=== PATIENT | female | born 1990 | race Caucasian/White ===

== ENCOUNTER 2025-03-06 17:23 | Emergency (ER) | payer BC, SELFPAY ==
[2025-03-06] VITALS (11 sets, daily range): BP systolic 114–132; BP diastolic 57–79; PULSE 77–92; RESP 16–20; TEMP 36.4; O2SAT 96–100; BMI 34.7
[2025-03-06 18:10] LABS: Ictotest Urine Negative (Negative)
--- NOTE | 2025-03-06 18:10 | ED_ITS ---
HPI - Back Pain/Injury General Chief Complaint: Back Pain/Injury Stated Complaint: pain from mid neck to back Time Seen by Provider: 03/06/25 17:45 Source: patient History of Present Illness HPI Narrative: 34-year-old female with obstetrical history, last menstrual period 1125, had home presentation tests positive 02/28/2025 x2 home tests, going nausea and vomiting, [place] 03/03/2025 had vaginal spotting, on 03/04/2025 had passing of clot, while they were returning from vacation in [place] coming back home. Chronic low back pain. Mid upper pain between shoulder blades earlier this morning. [place] like she might pass out. However she has had periods of low back pain in the past, sometimes associated with a sensation that she might pass out. No recent cough fevers or chills. Patient also expressed concerns about ongoing left ankle area numbness 4 months' duration. No incontinence of urine or stool. Intermittent symptoms. Has been followed by a neurologist for migraine headaches, unclear if neurologists has been involved with this workup prior. Related Data Allergies Allergy/AdvReac Type Severity Reaction Status Date / Time latex Allergy Severe Rash Verified 03/06/25 18:07 Patient History Social History Smoking Status: Current every day smoker Smoking Status: Current every day smoker tobacco type: vaping Exam Narrative Exam Narrative: GENERAL: Well-developed patient, in mild distress. HEAD: Atraumatic. Normocephalic. EYES: Pupils equal round and reactive. Extraocular motions intact. No scleral icterus. No injection or drainage. ENT: No obvious craniofacial trauma or swelling.. NECK: Trachea midline. Non tender CARDIOVASCULAR: Regular rate and rhythm without murmurs, gallops, or rubs. RESPIRATORY: Clear to auscultation. Breath sounds equal bilaterally. No wheezes, rales, or rhonchi. GASTROINTESTINAL: Obese, Abdomen soft, non-tender, nondistended. EXTREMITIES: No edema or joint tenderness. BACK: Nontender without deformity or crepitance. No flank tenderness. NEURO: AOx3. Motor functions grossly nonfocal. Sensation intact to light touch including to left ankle/foot area that reportedly has had intermittent tingling for months duration. SKIN: No rash or erythema of visible areas Initial Vital Signs Initial Vital Signs: Vital Signs Temperature 97.6 F 03/06/25 17:32 Pulse Rate 90 03/06/25 17:32 Respiratory Rate 18 03/06/25 17:32 Blood Pressure 132/72 03/06/25 17:32 Pulse Oximetry 100 03/06/25 17:32 Oxygen Delivery Method Room Air 03/06/25 17:32 Course Orders Ordered: ED Orders 03/06/25 17:45 Ictotest Urine Stat Urine Microscopic Stat 03/06/25 18:11 US pelvic complete Stat 03/06/25 18:28 ABO RH Type Stat CBC Auto Diff [Complete Blood Count AUTO DIFF] Stat CMP [Comprehensive Metabolic Panel] Stat HCG Quantitative /Beta subunit Stat Discontinued Medications Lactated Ringer's (Lactated Ringers) 1,000 mls @ 1,000 mls/hr IV BOLUS ONE Stop: 03/06/25 19:11 Last Infusion: 03/06/25 21:03 Dose: Infused Documented By: Admin: 03/06/25 18:34 Dose: 1,000 mls/hr Documented By: ANALI Vital Signs Vital signs: Vital Signs - 8 hr 03/06/25 19:00 03/06/25 19:00 03/06/25 19:30 Pulse Rate Respiratory Rate Blood Pressure 121/70 117/78 Pulse Oximetry 96 03/06/25 19:30 03/06/25 20:00 03/06/25 20:00 Pulse Rate 84 88 Respiratory Rate 20 Blood Pressure 114/79 Pulse Oximetry 97 98 03/06/25 20:26 03/06/25 20:44 03/06/25 20:44 Pulse Rate 82 Respiratory Rate 16 Blood Pressure 116/65 Pulse Oximetry 98 03/06/25 21:00 03/06/25 21:01 03/06/25 21:01 Pulse Rate 77 77 Respiratory Rate Blood Pressure 118/57 L Pulse Oximetry 97 97 03/06/25 21:04 Pulse Rate Respiratory Rate 16 Blood Pressure Pulse Oximetry MDM - Back Pain/Injury Lab Data Attestation: I reviewed the patient's lab results. Lab results narrative: White blood cell count 8200, hemoglobin 13.8, platelets adequate. Glucose 107. Normal renal function, serum CO2, electrolytes. Liver functions normal. Urine dip negative. Urine test positive. Serum quantitative hCG low but measurable 25. O-positive blood type/Rh noted. 03/06/25 18:28 03/06/25 18:28 Labs: Lab Results 03/06/25 03/06/25 Range/Units 17:45 18:28 WBC 8.2 (4.5-11.0) X10^3/uL RBC 4.76 (4.0-5.2) X10^6/uL Hgb 13.8 (12.0-16.0) g/dL Hct 40.7 (36-46) % MCV 85.6 (80-100) fL MCH 29.0 (26-34) PG MCHC 33.9 (30-36) % RDW 13.6 (11.6-14.8) % Plt Count 242 (150-400) X10^3/uL Neut % (Auto) 73.0 (50-75) % Lymph % (Auto) 18.0 L (25-40) % [place]elope % (Auto) 6.3 (3-14) % Eos % (Auto) 2.0 (2-4) % Baso % (Auto) 0.7 (0-2) % Neut # (Auto) 6000 (8272-4072) /uL Lymph # (Auto) 1500 (1628-1374) /uL [place]elope # (Auto) 500 (0-900) /uL Eos # (Auto) 200 (0-450) /uL Baso # (Auto) 100 (0-100) /uL Sodium 138 (137-145) mmol/L Potassium 3.4 (3.4-5.1) mmol/L Chloride 104 (98-107) mmol/L Carbon Dioxide 23 (22-32) mmol/L BUN 9 (7-17) mg/dL Creatinine 0.93 (0.52-1.04) mg/dL Estimated GFR > 60 (>60) mL/min BUN/Creatinine Ratio 9.7 (6-22) Glucose 107 H (70-99) mg/dL Calcium 9.2 (8.4-10.2) mg/dL Total Bilirubin 0.3 (0.2-1.3) mg/dL AST 29 (14-36) IU/L ALT 23 (<35) IU/L Alkaline Phosphatase 69 (38-126) U/L Total Protein 8.1 (6.3-8.2) g/dL Albumin 4.8 (3.5-5.0) g/dL Globulin 3.3 (1.7-4.1) g/dL Albumin/Globulin Ratio 1.5 (1.0-2.8) HCG, Quant 24.95 mIU/mL Ur Bilirubin Confirm Negative (Negative) Urine RBC None seen (0-5/HPF) Urine WBC 1-5/hpf (0-5/HPF) Ur Squamous Epith Cells 1-5 /hpf (0-5/HPF) Urine Bacteria Few (2-10) H (None) Ur Culture Indicated? Cult not indicated Vol Urine Centrifuged 10ml (spun) Blood Type O Positive Point of Care Testing Test Results Positive Urine Dip Bedside Urine Glucose Negative Bedside Urine Bilirubin + 1 Bedside Urine Ketone + 15 Urine Specific [place] 1.015 Bedside Urine Occult Blood ++ Bedside Urine pH 6 Bedside Urine Protein +/- 15 Bedside Urine Urobilinogen - Negative Bedside Urine Nitrite - Negative Bedside Urine Leukocytes +/- 15 Esterase Imaging Data Ultrasound pelvis: Radiologist's Impression: [address] [address] Ultrasound Report Signed Patient: Raya Knutson MR#: [id number] : 1990 Acct:[id number] Age/Sex: 34 / F Date of Service: 03/06/25 Loc: ED Accession Number: [id number] Procedure: US pelvic complete Ordering Provider: Gunnar Mas MD PROCEDURE: US PELVIC COMPLETE INDICATIONS: BLEEDING; POSITIVE HCG TECHNIQUE: Real-time scanning was performed of the pelvic organs, with image documentation. Additional endovaginal scanning was necessary due to incomplete visualization of the adnexal and endometrial structures by transabdominal scanning. COMPARISON: None. FINDINGS: Uterus: Uterus is anteverted and normal in size at 7.6 x 3.0 x 5.1 cm. The myometrium is homogeneous. The endometrium measures 2.8 mm combined thickness. No evidence of intrauterine gestation. Ovaries: The right ovary measures 3.0 x 2.8 x 1.8 cm, with a calculated ovarian volume of 7.8 cc. The left ovary measures 1.7 x 2.9 x 1.8 cm, with a calculated ovarian volume of 4.6 cc. The ovaries have a normal sonographic appearance. Less than 12 follicles can be seen in each ovary. No adnexal masses are seen. Other: No pathologic free abdominal or pelvic fluid. IMPRESSION: No intrauterine gestation visualized. No sonographic evidence of ectopic or free fluid in the pelvis. Given reported history of positive beta HCG, recommend short interval pelvic ultrasound follow-up and repeat beta HCG. Approved by: Lindsay Arredondo M.D.,Ph.D. on 03/06/2025 at 19:46 MDM Narrative Medical decision making narrative: 34-year-old female with home test 02/28/2025, had spotting on [place] 03/03/2025, passage of vaginal clots 03/04/2025, feels less nausea and vomiting since passage of clot, has chronic low back pain that is recently increased, now having upper back pain. Denies recent cough or injury. Lab data: White blood cell count 8200, hemoglobin 13.8, platelets adequate. Glucose 107. Normal renal function, serum CO2, electrolytes. Liver functions normal. Urine dip negative. Urine test positive. Serum quantitative hCG low but measurable 25. O-positive blood type/Rh noted. Ultrasound pelvis. IMPRESSION: No intrauterine gestation visualized. No sonographic evidence of ectopic or free fluid in the pelvis. Given reported history of positive beta HCG, recommend short interval pelvic ultrasound follow-up and repeat beta HCG. See radiology report. Case discussed with OB on-call Dr. Kim, who agrees with need for close follow up re-evaluation next few days in OB Clinic, for repeat serum hCG testing and ultrasound. Discharged home with family. Contact information given for OB Clinic. Also given PCP contact number [phone], to call for arrangement of PCP to help coordinate further evaluation of chronic back pain, intermittent left ankle area numbness, and other non obstetrical concerns. Discharged home with family. Return precautions discussed. Discharge Plan Departure Patient Disposition: Home Clinical Impression: First trimester bleeding Activity Restrictions/Additional Instructions: Low back pain, recent positive test home, bleeding [place] night, passage of clots , increasing back pain today. Serum test was weakly positive 20-30 range. Ultrasound performed, no intrauterine or ectopic was confirmed. Recommendations to follow up with electric motor assembler and tester for further serum testing levels of hormone, and likely repeat pelvic ultrasound imaging. Take Tylenol as needed for pain control. Return to this/nearest emergency department for any change worsening symptoms or concerns prior. Case discussed with on-call electric motor assembler and tester Dr. Early who has home improvement advisor temporary cross covering physician, recommended follow up with their established obstetrics gynecology clinic such as with Dr. Lakhani, her office information provided, to provide follow up in the next few days for repeat blood testing and repeat ultrasound imaging. For establishment with primary care local provider, consider calling number [phone]. Referrals: Monserrat Lakhani MD [Physician, GLASSINE MACHINE TENDER] John Early MD [Physician, GLASSINE MACHINE TENDER] Stand Alone Forms: Patient Portal/API
[2025-03-06 18:34] LABS: Culture Indicated Urine Cult Not Indicated
[2025-03-06] MEDS: LACTATED RINGERS 1,000 ML 1000 ML IV (18:34)
[2025-03-06 18:40] LABS: Add Manual Diff / Slide Review NO; Hematocrit 40.7 % (36-46); Hemoglobin 13.8 g/dL (12.0-16.0); Lymphocytes Absolute Auto 1500 /uL (1100-4500); Mean Corpuscular HGB Conc 33.9 % (30-36); Mean Corpuscular Hemoglobin 29.0 PG (26-34); Mean Corpuscular Volume 85.6 fL (80-100); Platelet Count 242 X10^3/uL (150-400)
[2025-03-06 18:52] LABS: Alanine Aminotransferase 23 IU/L (<35); Albumin 4.8 g/dL (3.5-5.0); Albumin Globulin Ratio 1.5 (1.0-2.8); Alkaline Phosphatase 69 U/L (38-126); Blood Urea Nitrogen 9 mg/dL (7-17); Calcium 9.2 mg/dL (8.4-10.2); Carbon Dioxide 23 mmol/L (22-32); Chloride 104 mmol/L (98-107); Estimated Glomerular Filt Rate > 60 mL/min (>60); Globulin 3.3 g/dL (1.7-4.1); Glucose 107 mg/dL (70-99); HEMOLYSIS < 15 (0-50); Potassium 3.4 mmol/L (3.4-5.1); Sodium 138 mmol/L (137-145); Total Protein 8.1 g/dL (6.3-8.2)
[2025-03-06 19:09] LABS: HCG Quantitative /Beta subunit 24.95 mIU/mL
== END 2025-03-06 21:29 | disposition home or self-care (01) ==
PROVIDERS: Family Medicine; Emergency Provider Emergency Medicine
DX: O26.851 Spotting complicating pregnancy, first trimester (principal); M54.6 Pain in thoracic spine; M54.50 Low back pain, unspecified; Z3A.00 Weeks of gestation of pregnancy not specified
CPT/HCPCS: 36415; 76830; 76856; 80053; 81003; 81015; 81025; 84702; 85025; 86900; 86901; 96360; 96361; 99284; J7120